=== PATIENT | female | born 2000 | race African-American/Black ===

== ENCOUNTER 2021-03-29 21:20 | Emergency (ER) | payer OTHER ==
[~2021-03-29] VITALS: Ht 157.5 cm; Wt 56.7 kg
[2021-03-29 22:21] VITALS: BP 140/68
== END 2021-03-29 22:30 | disposition home or self-care (01) ==
LOC: ER 21:20
DX: R51.9 Headache, unspecified (principal); R22.0 Localized swelling, mass and lump, head; V49.88XA Car occupant (driver) (passenger) injured in other specified transport accidents, initial encounter; Y93.89 Activity, other specified; Y92.413 State road as the place of occurrence of the external cause; Y99.9 Unspecified external cause status